=== PATIENT | male | born 1980 | race Caucasian/White ===

== ENCOUNTER 2019-03-25 09:47 | Emergency (ER) | payer MEDICAID ==
[~2019-03-25] VITALS: Ht 188 cm; Wt 88.9 kg
[2019-03-25 09:47] VITALS: BP_SYST 137
[2019-03-25 11:49] VITALS: BP_SYST 128
== END 2019-03-25 11:37 ==
LOC: SED 09:47
DX: L03.317 Cellulitis of buttock (principal); F19.10 Other psychoactive substance abuse, uncomplicated; F41.9 Anxiety disorder, unspecified
CPT/HCPCS: 99283